=== PATIENT | female | born 1970 | race Caucasian/White ===

== ENCOUNTER → 2021-11-21 | Outpatient (CLI) | payer BC | END | disposition home or self-care (01) | LOC: RAD 13:18 | PROVIDERS: ATTEND Family Medicine | DX: J98.11 Atelectasis (principal); J84.10 Pulmonary fibrosis, unspecified ==

== ENCOUNTER → 2022-01-19 | Outpatient (CLI) | payer BC | END | disposition home or self-care (01) | LOC: RAD 12:57 | PROVIDERS: ATTEND Family Medicine | DX: K59.00 Constipation, unspecified (principal) ==